=== PATIENT | male | born 1945 | race Caucasian/White ===

== ENCOUNTER 2020-08-01 07:41 | Outpatient (REF) | payer MEDICARE, SELFPAY | END 2020-08-01 07:42 | disposition home or self-care (01) | LOC: HO.BBR 07:41 | PROVIDERS: Visit Provider Internal Medicine Medical Oncology | DX: D45 Polycythemia vera (principal) | CPT/HCPCS: 36415; 85018; 99195 ==

== ENCOUNTER 2020-10-31 08:01 | Outpatient (REF) | payer MEDICARE, SELFPAY | END 2020-10-31 08:02 | disposition home or self-care (01) | LOC: HO.BBR 08:01 | PROVIDERS: Visit Provider Internal Medicine Medical Oncology | DX: D45 Polycythemia vera (principal) | CPT/HCPCS: 36415; 85014; 85018; 99195 ==

== ENCOUNTER 2021-01-29 08:11 | Outpatient (REF) | payer MEDICARE, SELFPAY | END 2021-01-29 08:12 | disposition home or self-care (01) | LOC: HO.BBR 08:11 | PROVIDERS: Visit Provider Internal Medicine Medical Oncology | DX: D45 Polycythemia vera (principal) | CPT/HCPCS: 85014; 85018; 99195 ==

== ENCOUNTER 2021-06-03 13:10 | Outpatient (REF) | payer MEDICARE, SELFPAY ==
[2021-06-03 13:27] LABS: MANUAL DIFF FLAG SCAN; NRBC Pct Auto 0.4 /100WBC (0.0-0.2); SCAN SMEAR FLAG 1
[2021-06-03 13:28] LABS: Basophils Absolute Auto 0.4 X10*3/uL (0.0-0.2); Basophils Percent Auto 1.5 % (0-2); Eosinophils Absolute Auto 0.7 X10*3/uL (0.0-0.4); Eosinophils Percent Auto 2.4 % (0-4); Hematocrit 41.9 % (42-52); Hemoglobin 11.2 g/dl (14.0-18.0); Imm Gran Pct Auto 2.2 % (0.0-0.4); Lymphocytes Absolute Auto 1.8 X10*3/uL (1.2-4.9); Lymphocytes Percent Auto 6.7 % (20-40); Mean Corpuscular HGB Conc 26.7 g/dl (31.0-36.0); Mean Corpuscular Hemoglobin 17.3 pg (27.0-33.0); Monocytes Absolute Auto 1.7 X10*3/uL (0.1-1.2); Monocytes Percent Auto 6.1 % (2-11); Neutrophils Absolute Auto 22.3 X10*3/uL (2.0-8.3); Neutrophils Percent Auto 81.1 % (45-73); PLT CLUMP 1; Red Blood Count 6.48 X10*6/uL (4.60-5.80); Red Cell Distribution Width 22.8 % (11.0-16.0)
[2021-06-03 13:31] LABS: Mean Corpuscular Volume 64.7 fL (80-98); PLT ABN DIST 1; Platelet Count 389 X10*3/uL (160-400); White Blood Count 27.5 X10*3/uL (4.8-10.8)
[2021-06-03 13:51] LABS: SLIDE REVIEW VERIFIED
[2021-06-03 14:50] LABS: Alanine Aminotransferase 9 U/L (0-40); Albumin Level 3.9 g/dL (3.5-5.0); Alkaline Phosphatase 76 U/L (39-117); Anion Gap 15 (12-20); Aspartate Amino Transferase 13 U/L (5-37); Bilirubin Total 0.7 mg/dL (0.0-1.0); Blood Urea Nitrogen 52 mg/dL (9-16); Calcium 8.5 mg/dL (8.4-10.2); Carbon Dioxide 19 mmol/L (22-29); Chloride 109 mmol/L (96-108); Estimated Glomerular Filt Rate 24; Glucose Random 73 mg/dL (60-115); Potassium 5.7 mmol/L (3.3-5.1); Sodium 137 mmol/L (135-145); Total Protein 6.7 g/dL (6.5-8.0)
== END 2021-06-03 13:11 | disposition home or self-care (01) ==
LOC: HO.BBR 13:10
PROVIDERS: Visit Provider Internal Medicine Medical Oncology
DX: D45 Polycythemia vera (principal)
CPT/HCPCS: 36415; 80053; 85018; 85025; 99195

== ENCOUNTER 2021-09-03 13:23 | Outpatient (REF) | payer MEDICARE, SELFPAY | END 2021-09-03 13:24 | disposition home or self-care (01) | LOC: HO.BBR 13:23 | PROVIDERS: PCP Internal Medicine; Visit Provider Internal Medicine Medical Oncology | DX: D45 Polycythemia vera (principal) | CPT/HCPCS: 85014; 85018; 99195 ==